=== PATIENT | male | born 1980 | race Caucasian/White ===

== ENCOUNTER 2017-02-22 11:05 | Emergency (ER) | payer OTHER ==
[~2017-02-22] VITALS: Ht 185.4 cm; Wt 95.3 kg
[~2017-02-22 11:05] MED LIST: ALPRAZOLAM1 M2 PO; FLUOXETINE HCL20 M2 PO; METHADONE10 MG/5 M2 PO
--- NOTE | 2017-02-22 12:47 | CT SCAN REPORT ---
EXAMINATION: CT HEAD W/O IV CONTRAST CT FACIAL BONES W/O IV CONTRAST CLINICAL INFORMATION: 36-year-old male with concussion. Heavy branch fell on face. Laceration to the nose. Evaluate for intracranial hemorrhage and Le Fort fracture. COMPARISON: Head CT from 08/27/2016. TECHNIQUE: Head - Contiguous axial imaging of the head was performed from the skull base to the vertex without the administration of intravenous contrast, and axial images reconstructed at 0.625 mm , 2.5 mm and 5 mm slice thickness. Facial bones- Volumetric, helical CT acquisition of the facial bones was obtained without contrast; in addition to the standard set of axial images, multiplanar reformatted images were provided in the coronal and sagittal imaging planes. DLP: 1453 mGy-cm (total) FINDINGS: HEAD: The ventricles have normal size and configuration. The sulci and basilar cisterns are unremarkable. No extra-axial fluid collections. No evidence of acute intracranial hemorrhage, territorial infarction, abnormal mass effect or midline shift. Kinney to white matter differentiation is well preserved. The calvarium is intact and the mastoid air cells and middle ear cavities are clear. FACIAL BONES: Soft tissue swelling and soft tissue emphysema anterior to the anterior nasal spine, and there is punctate calcification at the tip of the anterior nasal spine, likely sequela of the recent trauma. Nasal bones and nasal septum are intact. The maxilla, mandible, pterygoid plates and zygomatic arches are intact. The overall rims and trejo, including orbital floors and lamina papyracea, are intact. The globes and retrobulbar fat planes are normal. There are no air-fluid levels within the paranasal sinuses. The ostiomeatal units are patent. Small mucous retention cysts are present within maxillary sinuses. There is mild mucosal thickening of the inferior frontal sinuses and anterior ethmoid air cells. The skull base, visualized atlas, axis and atlantoaxial articulation are normal. IMPRESSION: 1. No acute intracranial pathology. 2. No evidence of LeFort fracture. 3. Posttraumatic soft tissue swelling and soft tissue emphysema at the inferior aspect of the nose, projecting anterior to the anterior nasal spine. The punctate calcification of the anterior nasal spine likely represents a minimal fracture from the recent trauma. 4. Mild paranasal sinus disease.
--- NOTE | 2017-02-22 15:33 | ED ANIMAL BITE/WOUND CHECK ---
History of Present Illness General Chief Complaint: Laceration Procedure Stated Complaint: LAC TO NOSE DUE TO BRANCH HITING Source: patient Exam Limitations: intoxication Vital Signs & Intake/Output Vital Signs & Intake/Output Vital Signs Date Time Temp Pulse Resp B/P Pulse O2 O2 Flow FiO2 Ox Delivery Rate 02/22 1544 97.8 90 18 148/74 94 02/22 1307 97.7 79 18 143/65 97 02/22 1207 99 Room Air 02/22 1111 98.2 76 16 122/61 100 Room Air Allergies Coded Allergies: NO KNOWN ALLERGIES (09/17/15) Reconcile Medications Alprazolam 1 MG TABLET 1 TAB PO TID ANXIETY (Reported) Clindamycin HCl 300 MG CAPSULE 1 CAP PO BID nasal trauma Fluoxetine HCl 20 MG CAPSULE 1 CAP PO DAILY MENTAL HEALTH (Reported) Methadone HCl 10 MG/5 ML SOLUTION 150 MG PO DAILY ADDICTION (Reported) Triage Note: 36 Y/O MALE PRESENTS WITH LACERATION UNDER NOSE; STATES A TREE BRANCH FELL ONTO HIS NOSE. STATES HIS TEETH HURT BUT DENIES THEM FEELING LOOSE. DRIED BLOOD NOTED IN NARES. UNSURE LAST TETANUS. DENIES THIS BEING WORKMANS COMP Triage Nurses Notes Reviewed? yes HPI: Forrest is a 36 yo m w/ PMH IVDU on methadone, PTSD and anxiety into the emergency department if her nasal laceration. She states he came in his buddies were under a tree when out of nowhere suddenly a branch from the tree fell, landed on his face. Patient states he felt like he heard a fall and looked out on the slide directly in the face. His nose started bleeding significantly so he came into the emergency department for evaluation. Patient denies any LOC. He said the branch was relatively big. He is unsure of his tetanus status. Patient endorses pain on the top portion of his 2 front teeth but denies any malocclusion or change in voice. He denies feeling that teeth are loose in any way. (DRISS DIOP,MUSA) Past History Travel History Traveled to [place] past 21 day No Medical History Any Pertinent Medical History? none Neurological: NONE EENT: NONE Cardiovascular: NONE Respiratory: NONE Gastrointestinal: NONE Hepatic: NONE Renal: NONE Musculoskeletal: NONE Psychiatric: anxiety, IV DRUG USE PTSD Endocrine: NONE Blood Disorders: NONE Cancer(s): NONE HARDBOARD GRINDER/Reproductive: NONE History of MRSA: No History of VRE: No History of CDIFF: No Surgical History Surgical History: non-contributory Psychosocial History Who do you live with Significant Other What is your primary language Togolese Tobacco Use: Current Daily Use Daily Tobacco Use Amount/Type: => 5 Cigarettes daily Family History Hx Contributory? No (MUSA NAQVI MD) Review of Systems Review of Systems Constitutional: Reports: see HPI. EENTM: Reports: epistaxis, nasal pain. Respiratory: Reports: no symptoms. Cardiovascular: Reports: no symptoms. GI: Reports: no symptoms. Genitourinary: Reports: no symptoms. Musculoskeletal: Reports: no symptoms. Skin: Reports: no symptoms. Neurological/Psychological: Reports: no symptoms. Hematologic/Endocrine: Reports: no symptoms. Immunologic/Allergic: Reports: no symptoms. All Other Systems: Reviewed and Negative (MUSA NAQVI MD) Physical Exam Physical Exam General Appearance: well developed/nourished, no apparent distress, alert, awake , anxious Head: normal appearance, active bleeding, evidence of injury Eyes: Bilateral: PERRL, EOMI, other (pinpoint pupils bilaterally). Ears, Nose, Throat: normal pharynx, hearing grossly normal, laceration of the right nasal septum between the bridge of the nose and where the septum continues posteriorly., superficial abrasions to the anterior tip of the nose Neck: normal inspection, supple, full range of motion Respiratory: normal breath sounds, chest non-tender, no respiratory distress Cardiovascular: regular rate/rhythm Gastrointestinal: soft, non-tender Back: normal inspection, normal range of motion Extremities: normal range of motion Neurologic/Psych: no motor/sensory deficits, awake, alert, oriented x 3, normal gait, normal mood/affect, 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 Patient has a approximately 3 cm irregular laceration around the inner portion of the nares at the septal junction, the right nares from the nasal septum. There is no transection of the anterior portion of the nasal septum. Small half centimeter lack to the superior portion of the outer nares. Dentition appears to be intact without any evidence of loose teeth. Patient's bite is within normal limits without any malocclusion or trismus. Likely only if nasal laceration, however the patient is intoxicated on his stable daily dose of methadone 150 mg. We will obtain CT scan to assess for underlying fracture given the irregular nature of wound. Wound is sutured without issues. Patient tolerated procedure well. Bleeding stopped after sutures were placed. No evidence of septal hematoma. No evidence of any acute fracture on imaging as well. Given unknown status of the patient's tetanus, will update now. He will follow with ENT in 1 week. Patient also discharged home with clindamycin to prevent any nasal infection from developing. Diagnostic Imaging: Viewed by Me: CT Scan. Discussed w/RAD: CT Scan. Radiology Impression: no fracture, 1. No acute intracranial pathology. 2. No evidence of LeFort fracture. 3. Posttraumatic soft tissue swelling and soft tissue emphysema at the inferior aspect of the nose, projecting anterior to the anterior nasal spine. The punctate calcification of the anterior nasal spine likely represents a minimal fracture from the recent trauma. 4. Mild paranasal sinus disease. (MUSA NAQVI MD) Departure Departure Time of Disposition: 1530 Disposition: HOME OR SELF CARE Condition: Stable Clinical Impression Primary Impression: Laceration of nose, complex Qualifiers: Encounter type: initial encounter Qualified Code: S01.21XA - Laceration without foreign body of nose, initial encounter Ruled Out Impressions: Laceration of nasal septum with complication Referrals: DOMINIC DIOP,IMCHEL CORDOVA M.D. (PCP/Family) Additional Instructions: His follow-up with Dr. Scanlon in the next week. You do not have to have these stitches removed at all. They will dissolve on their own. Try not to blow her nose or pick your nose or the next few days. If you have any evidence of infection, swelling, pain, redness, pus, please return to the emergency department for further evaluation otherwise he can follow up with the ear nose and throat doctor in about a week. Departure Forms: Customer Survey General Discharge Information Prescriptions: Current Visit Scripts Clindamycin HCl 1 CAP PO BID #14 CAP (MUSA NAQVI MD) PA/INTEGRATED CIRCUITS INSPECTOR Co-Sign Statement Statement: ED Attending supervision documentation- [X] I saw and evaluated the patient. I have also reviewed all the pertinent lab results and diagnostic results. I agree with the findings and the plan of care as documented in the PA's/INTEGRATED CIRCUITS INSPECTOR's documentation. [] I have reviewed the ED Record and agree with the PA's/INTEGRATED CIRCUITS INSPECTOR's documentation. [] Additions or exceptions (if any) to the PAs/INTEGRATED CIRCUITS INSPECTOR's note and plan are summarized below: [] I SAW AND PERSONALLY EXAMINED THE PATIENT BEFORE AND AFTER THE WOUND CLOSURE AND I AGREE WITH THE TREATMENT AND THE POC. HE WILL FOLLOW UP WITH PLASTIC SURGERY. (JULITA GARZA,TL Lambert) Procedures Laceration/Wound Repair Laceration/Wound Repair: Wound Location: face (primarily right nares/septum) Wound's Depth, Shape: irregular Wound Length (cm): 3 Wound Explored: clean, no foreign body removed Irrigated w/ Saline (ccs): 100 Betadine Prep? Yes Anesthesia: 1% lidocaine Volume Anesthetic (ccs): 10 Wound Debrided: minimal Wound Repaired With: sutures Suture Size/Type: 5:0, Vicryl Number of Sutures: 5 Layer Closure? No Sterile Dressing Applied: No Splint Applied? No Tetanus Status: not up to date Progress: tolerated procedure without issues (DRISS DIOP,MUSA)
[2017-02-22] MEDS ORDERED: CLINDAMYCIN HC300 M1 PO (15:41)
[2017-02-22 15:44] VITALS: BP 148/74
== END 2017-02-22 15:45 ==
LOC: ERH 11:05
DX: S01.21XA Laceration without foreign body of nose, initial encounter (principal); W20.8XXA Other cause of strike by thrown, projected or falling object, initial encounter; Y93.89 Activity, other specified; Y92.9 Unspecified place or not applicable
CPT/HCPCS: 90471; 90714